=== PATIENT | female | born 1945 | race Caucasian/White ===

== ENCOUNTER 2018-02-02 08:34 | Day surgery (SDC) | payer MEDICARE, OTHER ==
[~2018-02-02] VITALS: Ht 167.6 cm; Wt 102.2 kg
[2018-02-02] VITALS (14 sets, daily range): BP systolic 104–157; BP diastolic 44–92
[2018-02-02] MEDS ORDERED: normal saline 1000ml 1,000 ML IV PRN (09:10)
[2018-02-02] MEDS ORDERED: LEVO100T PO (09:28)
[2018-02-02] MEDS ORDERED: MULT-38 PO (09:28)
[2018-02-02] MEDS ORDERED: ASPI-1265 PO (09:28)
[2018-02-02] MEDS ORDERED: LOSA100T15 PO (09:28)
[2018-02-02 09:36] LABS: BASOPHILS # (AUTO) 0.1 X10'3 (0-0.2); BASOPHILS % (AUTO) 0.8 % (0-1); EOSINOPHILS # (AUTO) 0.3 X10'3 (0-0.9); EOSINOPHILS % (AUTO) 3.4 % (0-6); LYMPHOCYTES # (AUTO) 1.1 X10'3 (1.1-4.8); LYMPHOCYTES % (AUTO) 13.2 % (21-51); MEAN CORPUSCULAR HEMOGLOBIN 29.7 PG (27.0-31.0); MEAN CORPUSCULAR HGB CONC 33.2 % (33.0-36.5); MEAN CORPUSCULAR VOLUME 89.5 FL (78-98); MEAN PLATELET VOLUME 10.4 FL (7.4-10.4); MONOCYTES # (AUTO) 0.8 X10'3 (0-0.9); MONOCYTES % (AUTO) 9.5 % (2-12); NEUTROPHILS # (AUTO) 6.3 X10'3 (1.8-7.7); NEUTROPHILS % (AUTO) 73.1 % (42-75); PRE OP HEMATOCRIT 43.9 % (35.0-45.0); PRE OP HEMOGLOBIN 14.6 g/dL (12.0-16.0); PRE OP PLATELET COUNT 239 X10'3 (140-440); RED CELL DISTRIBUTION WIDTH 14.3 % (11.5-14.5)
[2018-02-02 09:43] LABS: ALBUMIN 3.5 G/DL (3.4-5.0); ANION GAP 10 (8-16); BLOOD UREA NITROGEN 16 MG/DL (7-18); BUN/CREATININE RATIO 21.3 (6.6-38.0); CALCIUM 9.3 MG/DL (8.5-10.1); CHLORIDE 105 MMOL/L (99-107); CREATININE 0.75 MG/DL (0.40-0.90); GLUCOSE 115 MG/DL (70-104); POTASSIUM 3.8 MMOL/L (3.5-5.1); SODIUM 142 MMOL/L (135-145); TOTAL CARBON DIOXIDE 27.4 MMOL/L (24-32); eGFR 76 ML/MIN
[2018-02-02 10:05] LABS: LARGE PLATELETS FEW; PLATELET ESTIMATE NORMAL
[2018-02-02 10:20] LABS: PROTHROMBIN TIME 9.9 SECONDS (9.0-12.0)
[2018-02-02] MEDS ORDERED: fentaNYL/PF 50MCG/1 ML 2ML syringe ONE (10:56)
[2018-02-02] MEDS ORDERED: LIDOcaine 1%/PF 5ML 10 MG/ML VIAL SQ ONE (11:00)
[2018-02-02] MEDS ORDERED: fentaNYL/PF 50MCG/1 ML 2ML syringe IV PRN (11:00)
== END 2018-02-02 15:00 | disposition home or self-care (01) ==
LOC: SSTAY O 08:34
PROVIDERS: ATTEND Radiology Diagnostic Radiology
DX: C34.12 Malignant neoplasm of upper lobe, left bronchus or lung (principal); J44.9 Chronic obstructive pulmonary disease, unspecified; G47.33 Obstructive sleep apnea (adult) (pediatric); I10 Essential (primary) hypertension; E03.9 Hypothyroidism, unspecified; F32.9 Major depressive disorder, single episode, unspecified; Z92.21 Personal history of antineoplastic chemotherapy; Z92.3 Personal history of irradiation; Z88.1 Allergy status to other antibiotic agents; Z88.0 Allergy status to penicillin; Z88.5 Allergy status to narcotic agent; Z87.891 Personal history of nicotine dependence; Z85.858 Personal history of malignant neoplasm of other endocrine glands; Z90.711 Acquired absence of uterus with remaining cervical stump; Z79.82 Long term (current) use of aspirin; Z98.890 Other specified postprocedural states; Z79.899 Other long term (current) drug therapy; Z88.8 Allergy status to other drugs, medicaments and biological substances
CPT/HCPCS: 32405; 36415; 71045; 77012; 80048; 85025; 85610; C2613; J3010; J7030; C1729

== ENCOUNTER 2018-03-10 07:30 | Inpatient (IN) | payer MEDICARE, OTHER ==
[2018-03-08 13:16] LABS: ABG HCO3 26.2 mmol/L (22.0-26.0); ABG OXYGEN SATURATION 95.7 % (95-98); ABG PCO2 (T) 39.9 mmHg (32.0-45.0); ABG PH (T) 7.436 (7.350-7.450); ABG PO2 (T) 76.3 mmHg (83-108); ALLEN'S TEST Positive; FCOHb 0.3 % (0.5-1.5); FMetHb 0.1 % (0.3-1.12); FO2Hb 95.3 % (94-100); TOTAL HEMOGLOBIN 14.4 G/dl (12.0-16.0)
[2018-03-08 14:12] LABS: BASOPHILS % (AUTO) 0.5 % (0-1); EOSINOPHILS # (AUTO) 0.3 X10'3 (0-0.9); EOSINOPHILS % (AUTO) 2.9 % (0-6); LYMPHOCYTES # (AUTO) 1.3 X10'3 (1.1-4.8); LYMPHOCYTES % (AUTO) 13.6 % (21-51); MEAN CORPUSCULAR HEMOGLOBIN 29.3 PG (27.0-31.0); MEAN CORPUSCULAR HGB CONC 32.4 % (33.0-36.5); MEAN CORPUSCULAR VOLUME 90.3 FL (78-98); MEAN PLATELET VOLUME 10.2 FL (7.4-10.4); MONOCYTES # (AUTO) 0.9 X10'3 (0-0.9); MONOCYTES % (AUTO) 9.1 % (2-12); NEUTROPHILS # (AUTO) 7.1 X10'3 (1.8-7.7); NEUTROPHILS % (AUTO) 73.9 % (42-75); PRE OP HEMATOCRIT 41.9 % (35.0-45.0); PRE OP HEMOGLOBIN 13.6 g/dL (12.0-16.0); PRE OP PLATELET COUNT 247 X10'3 (140-440); RED BLOOD COUNT 4.64 X10'6 (4.20-5.60); RED CELL DISTRIBUTION WIDTH 14.6 % (11.5-14.5)
[2018-03-08 14:13] LABS: CLARITY,URINE SLIGHTLY CLOUDY (Clear); COLOR,URINE YELLOW (Yellow); GLUCOSE, URINE NEGATIVE (Neg); KETONES,URINE NEGATIVE (Neg); LEUKOCYTE ESTERASE ,URINE NEGATIVE (Neg); NITRITES, URINE NEGATIVE (Neg); OCCULT BLOOD,URINE TRACE-INTACT (Neg); PROTEIN,URINE NEGATIVE (Neg); UA COLLECTION TYPE CLN CATCH MIDSTREAM; UROBILINOGEN,URINE 0.2 E.U/dL (0.2-1.0)
[2018-03-08 14:20] LABS: MUCUS STRANDS MANY /LPF (Neg); SQUAMOUS EPITHELIAL CELL,UR MANY /LPF (FEW)
[2018-03-08 14:20] LABS: HEMOGLOBIN A1C 6.1 % (4.5-6.2)
[2018-03-08 14:21] LABS: BACTERIA,URINE FEW /HPF (Neg); RBC,URINE 0-2 /HPF (0-2); WBC,URINE 0-4 /HPF (0-4)
[2018-03-08 14:36] LABS: ALBUMIN 3.3 G/DL (3.4-5.0); ALBUMIN/GLOBULIN RATIO 0.8 (1.1-1.5); ALKALINE PHOSPHATASE 118 IU/L (46-116); BLOOD UREA NITROGEN 15 MG/DL (7-18); BUN/CREATININE RATIO 18.3 (6.6-38.0); CALCIUM 9.1 MG/DL (8.5-10.1); CHLORIDE 105 MMOL/L (99-107); CREATININE 0.82 MG/DL (0.40-0.90); PRE OP ALT 28 U/L (30-65); PRE OP ANION GAP 9 (8-16); PRE OP AST 15 U/L (10-37); PRE OP BILIRUB, TOTAL 0.3 MG/DL (0.0-1.0); PRE OP GLUCOSE 92 MG/DL (70-104); PRE OP POTASSIUM 4.1 MMOL/L (3.4-5.1); PRE OP SODIUM 141 MMOL/L (135-145); TOTAL CARBON DIOXIDE 27.5 MMOL/L (24-32); TOTAL PROTEIN 7.3 G/DL (6.4-8.2); eGFR 69 ML/MIN
[~2018-03-10] VITALS: Ht 167.6 cm; Wt 103.0 kg
[2018-03-10] VITALS (17 sets, daily range): BP systolic 101–138; BP diastolic 48–91
[~2018-03-10 07:30] MED LIST: ASPI-1265 PO; LEVO100T PO; LOSA100T15 PO; MULT-38 PO; cefazolin/dext.iso 2gm/50ml 50 ML IV ONE; famotidine 20mg tablet PO ONE
[2018-03-10] MEDS ORDERED: BUPIVAcaine/PF 2.5mg/ml (0.25%) 10ml vial ONE ×2 (08:41→15:00)
[2018-03-10] MEDS: ringers solution, lacted 1,000 ML IV SCH ×2 (10:14→19:49)
[2018-03-10] MEDS ORDERED: propofol inj 20 ML IV ONE (13:39)
[2018-03-10] MEDS ORDERED: fentaNYL /PF 50mcg/ml 5ml ampule ONE (13:39)
[2018-03-10] MEDS ORDERED: rocuronium 10mg/ml inj IV ONE ×2 (13:39→13:42)
[2018-03-10] MEDS ORDERED: MIDAZolam 5mg/5ml vial ONE (13:39)
[2018-03-10] MEDS ORDERED: ePHEDrine 50MG/ML INJ. ONE (13:42)
[2018-03-10] MEDS ORDERED: sevoflurane 250ml liquid IH ONE (13:42)
[2018-03-10] MEDS ORDERED: ringers solution, lacted 1,000 ML IV SCH (15:42)
[2018-03-10] MEDS ORDERED: morphine 4 MG/ML inj SYRINge IV PRN ×4 (15:45→16:45)
[2018-03-10] MEDS ORDERED: meperidine/PF 25mg/ml syringe IV PRN ×3 (15:45)
[2018-03-10] MEDS ORDERED: ondansetron/PF 4mg/2ml inj IV PRN (15:45)
[2018-03-10] MEDS ORDERED: proCHLORperazine 10 MG/2 ml inj IV PRN (15:45)
[2018-03-10] MEDS ORDERED: metoclopramide 5 mg/ml inj IV PRN (16:45)
[2018-03-10] MEDS ORDERED: naloxone 0.4 mg/ml inj IV PRN (16:45)
[2018-03-10] MEDS ORDERED: HYDROcodone/acetaminophen 10/325mg tab PO PRN ×2 (16:45)
[2018-03-10] MEDS ORDERED: CADD PCA waste documentation MC PRN (16:45)
[2018-03-10] MEDS ORDERED: glycopyrrolate 0.2mg/ml inj ONE (17:14)
[2018-03-10] MEDS ORDERED: neostigmine methylsulfate 1 MG/ML 10ml vial ONE (17:14)
[2018-03-10 17:35] LABS: ABG BASE EXCESS -2.2 mmol/L (-2.0-3.0); ABG OXYGEN SATURATION 94.2 % (95-98); ABG PCO2 (T) 52.8 mmHg (32.0-45.0); ABG PH (T) 7.293 (7.350-7.450); ABG PO2 (T) 80.4 mmHg (83-108); FCOHb 0.3 % (0.5-1.5); FLOW 11 L/min; FMetHb 0.1 % (0.3-1.12); FO2Hb 93.8 % (94-100); TOTAL HEMOGLOBIN 13.4 G/dl (12.0-16.0)
[2018-03-10] MEDS: ondansetron/PF 4mg/2ml inj IV PRN (22:31)
[2018-03-10] MEDS: ceFAZolin inj. 1,000 MG in dextrose 5%-water 50ml 50 ML IV SCH (23:43)
[2018-03-11] VITALS (24 sets, daily range): BP systolic 92–137; BP diastolic 41–73
[2018-03-11 02:49] LABS: BASOPHILS % (AUTO) 0 % (0-1); EOSINOPHILS % (AUTO) 0 % (0-6); HEMATOCRIT 38.8 % (35.0-45.0); HEMOGLOBIN 12.8 g/dl (12.0-16.0); LYMPHOCYTES # (AUTO) 0.7 X10'3 (1.1-4.8); MEAN CORPUSCULAR HEMOGLOBIN 29.5 PG (27.0-31.0); MEAN CORPUSCULAR HGB CONC 32.9 % (33.0-36.5); MEAN CORPUSCULAR VOLUME 89.7 FL (78-98); MEAN PLATELET VOLUME 10.1 FL (7.4-10.4); MONOCYTES # (AUTO) 0.7 X10'3 (0-0.9); MONOCYTES % (AUTO) 5.1 % (2-12); NEUTROPHILS # (AUTO) 13.1 X10'3 (1.8-7.7); NEUTROPHILS % (AUTO) 89.9 % (42-75); PLATELET COUNT 228 X10'3 (140-440); RED BLOOD COUNT 4.32 X10'6 (4.20-5.60); RED CELL DISTRIBUTION WIDTH 14.2 % (11.5-14.5); WHITE BLOOD COUNT 14.6 X10'3 (4.5-11.0)
[2018-03-11 02:57] LABS: ALANINE AMINOTRANSFERASE 25 U/L (12-78); ALBUMIN 3.2 G/DL (3.4-5.0); ALBUMIN/GLOBULIN RATIO 0.9 (1.1-1.5); ALKALINE PHOSPHATASE 99 IU/L (46-116); ANION GAP 8 (8-16); ASPARTATE AMINO TRANSFERASE 16 U/L (10-37); BILIRUBIN,TOTAL 0.5 MG/DL (0.1-1.0); BLOOD UREA NITROGEN 12 MG/DL (7-18); CALCIUM 8.5 MG/DL (8.5-10.1); CHLORIDE 105 MMOL/L (99-107); CREATININE 0.75 MG/DL (0.40-0.90); GLUCOSE 137 MG/DL (70-104); MAGNESIUM 1.7 MG/DL (1.5-2.4); PHOSPHORUS 3.9 MG/DL (2.3-4.5); POTASSIUM 4.2 MMOL/L (3.5-5.1); SODIUM 139 MMOL/L (135-145); TOTAL CARBON DIOXIDE 25.6 MMOL/L (24-32); TOTAL PROTEIN 6.7 G/DL (6.4-8.2); eGFR 76 ML/MIN
[2018-03-11] MEDS ORDERED: oxyCODONE/APAP 5-325mg tablet PO PRN (07:10)
[2018-03-11] MEDS: ceFAZolin inj. 1,000 MG in dextrose 5%-water 50ml 50 ML IV SCH (07:28)
[2018-03-11] MEDS: ketorolac trometh. 30mg/ml inj. IV SCH ×3 (07:28→20:16)
[2018-03-11] MEDS: aspirin 81mg tab.chew PO SCH (08:08)
[2018-03-11] MEDS: ondansetron/PF 4mg/2ml inj IV PRN (08:41)
[2018-03-12] VITALS (23 sets, daily range): BP systolic 86–141; BP diastolic 42–87
[2018-03-12] MEDS: ketorolac trometh. 30mg/ml inj. IV SCH ×4 (02:12→20:19)
[2018-03-12 05:27] LABS: BASOPHILS % (AUTO) 0 % (0-1); EOSINOPHILS # (AUTO) 0.3 X10'3 (0-0.9); EOSINOPHILS % (AUTO) 2.6 % (0-6); HEMATOCRIT 38.8 % (35.0-45.0); HEMOGLOBIN 12.4 g/dl (12.0-16.0); LYMPHOCYTES # (AUTO) 0.7 X10'3 (1.1-4.8); LYMPHOCYTES % (AUTO) 6.8 % (21-51); MEAN CORPUSCULAR HEMOGLOBIN 29.1 PG (27.0-31.0); MEAN CORPUSCULAR HGB CONC 32.1 % (33.0-36.5); MEAN CORPUSCULAR VOLUME 90.8 FL (78-98); MEAN PLATELET VOLUME 10.7 FL (7.4-10.4); MONOCYTES # (AUTO) 0.8 X10'3 (0-0.9); MONOCYTES % (AUTO) 7.4 % (2-12); NEUTROPHILS # (AUTO) 8.7 X10'3 (1.8-7.7); NEUTROPHILS % (AUTO) 83.2 % (42-75); PLATELET COUNT 192 X10'3 (140-440); RED BLOOD COUNT 4.28 X10'6 (4.20-5.60); RED CELL DISTRIBUTION WIDTH 14.5 % (11.5-14.5); WHITE BLOOD COUNT 10.5 X10'3 (4.5-11.0)
[2018-03-12 05:44] LABS: ALANINE AMINOTRANSFERASE 20 U/L (12-78); ALBUMIN 2.8 G/DL (3.4-5.0); ALBUMIN/GLOBULIN RATIO 0.8 (1.1-1.5); ALKALINE PHOSPHATASE 102 IU/L (46-116); ANION GAP 6 (8-16); ASPARTATE AMINO TRANSFERASE 15 U/L (10-37); BILIRUBIN,TOTAL 0.6 MG/DL (0.1-1.0); BLOOD UREA NITROGEN 13 MG/DL (7-18); BUN/CREATININE RATIO 16.3 (6.6-38.0); CALCIUM 8.4 MG/DL (8.5-10.1); CHLORIDE 105 MMOL/L (99-107); GLUCOSE 108 MG/DL (70-104); MAGNESIUM 1.9 MG/DL (1.5-2.4); PHOSPHORUS 2.4 MG/DL (2.3-4.5); POTASSIUM 4.1 MMOL/L (3.5-5.1); SODIUM 140 MMOL/L (135-145); TOTAL CARBON DIOXIDE 28.6 MMOL/L (24-32); TOTAL PROTEIN 6.5 G/DL (6.4-8.2); eGFR 71 ML/MIN
[2018-03-12] MEDS: levoTHYROXINE 100mcg tablet PO SCH (07:24)
[2018-03-12] MEDS: aspirin 81mg tab.chew PO SCH (09:30)
[2018-03-13] VITALS (24 sets, daily range): BP systolic 86–161; BP diastolic 52–82
[2018-03-13] MEDS: ketorolac trometh. 30mg/ml inj. IV SCH ×3 (02:30→08:51)
[2018-03-13 06:05] LABS: BASOPHILS % (AUTO) 0 % (0-1); EOSINOPHILS # (AUTO) 0.3 X10'3 (0-0.9); EOSINOPHILS % (AUTO) 2.7 % (0-6); HEMATOCRIT 38.8 % (35.0-45.0); HEMOGLOBIN 12.7 g/dl (12.0-16.0); LYMPHOCYTES % (AUTO) 9.6 % (21-51); MEAN CORPUSCULAR HEMOGLOBIN 29.6 PG (27.0-31.0); MEAN CORPUSCULAR HGB CONC 32.8 % (33.0-36.5); MEAN CORPUSCULAR VOLUME 90.4 FL (78-98); MEAN PLATELET VOLUME 10.6 FL (7.4-10.4); MONOCYTES # (AUTO) 0.8 X10'3 (0-0.9); MONOCYTES % (AUTO) 7.8 % (2-12); NEUTROPHILS # (AUTO) 8.3 X10'3 (1.8-7.7); NEUTROPHILS % (AUTO) 79.9 % (42-75); PLATELET COUNT 206 X10'3 (140-440); RED BLOOD COUNT 4.29 X10'6 (4.20-5.60); RED CELL DISTRIBUTION WIDTH 14.1 % (11.5-14.5); WHITE BLOOD COUNT 10.4 X10'3 (4.5-11.0)
[2018-03-13 06:31] LABS: ALANINE AMINOTRANSFERASE 34 U/L (12-78); ALBUMIN 2.6 G/DL (3.4-5.0); ALBUMIN/GLOBULIN RATIO 0.7 (1.1-1.5); ALKALINE PHOSPHATASE 143 IU/L (46-116); ANION GAP 8 (8-16); ASPARTATE AMINO TRANSFERASE 26 U/L (10-37); BILIRUBIN,TOTAL 0.5 MG/DL (0.1-1.0); BLOOD UREA NITROGEN 13 MG/DL (7-18); BUN/CREATININE RATIO 19.7 (6.6-38.0); CALCIUM 8.4 MG/DL (8.5-10.1); CHLORIDE 105 MMOL/L (99-107); CREATININE 0.66 MG/DL (0.40-0.90); GLUCOSE 111 MG/DL (70-104); MAGNESIUM 1.8 MG/DL (1.5-2.4); PHOSPHORUS 2.8 MG/DL (2.3-4.5); POTASSIUM 4.1 MMOL/L (3.5-5.1); SODIUM 140 MMOL/L (135-145); TOTAL CARBON DIOXIDE 27.5 MMOL/L (24-32); TOTAL PROTEIN 6.4 G/DL (6.4-8.2); eGFR 88 ML/MIN
[2018-03-13] MEDS: levoTHYROXINE 100mcg tablet PO SCH (07:50)
[2018-03-13] MEDS: aspirin 81mg tab.chew PO SCH (07:50)
[2018-03-13] MEDS: ondansetron/PF 4mg/2ml inj IV PRN (21:29)
[2018-03-13] MEDS: losartan 25mg tablet PO SCH (21:29)
[2018-03-14] VITALS (23 sets, daily range): BP systolic 103–163; BP diastolic 57–91
[2018-03-14 06:39] LABS: BASOPHILS % (AUTO) 0 % (0-1); EOSINOPHILS # (AUTO) 0.3 X10'3 (0-0.9); EOSINOPHILS % (AUTO) 2.8 % (0-6); HEMATOCRIT 39.6 % (35.0-45.0); HEMOGLOBIN 12.9 g/dl (12.0-16.0); LYMPHOCYTES # (AUTO) 1.1 X10'3 (1.1-4.8); MEAN CORPUSCULAR HEMOGLOBIN 29.3 PG (27.0-31.0); MEAN CORPUSCULAR HGB CONC 32.5 % (33.0-36.5); MEAN CORPUSCULAR VOLUME 90.1 FL (78-98); MEAN PLATELET VOLUME 10.6 FL (7.4-10.4); MONOCYTES # (AUTO) 0.9 X10'3 (0-0.9); MONOCYTES % (AUTO) 7.5 % (2-12); NEUTROPHILS # (AUTO) 9.4 X10'3 (1.8-7.7); NEUTROPHILS % (AUTO) 80.7 % (42-75); PLATELET COUNT 231 X10'3 (140-440); RED CELL DISTRIBUTION WIDTH 14.4 % (11.5-14.5); WHITE BLOOD COUNT 11.7 X10'3 (4.5-11.0)
[2018-03-14 07:05] LABS: ALANINE AMINOTRANSFERASE 31 U/L (12-78); ALBUMIN 2.5 G/DL (3.4-5.0); ALBUMIN/GLOBULIN RATIO 0.7 (1.1-1.5); ALKALINE PHOSPHATASE 127 IU/L (46-116); ANION GAP 7 (8-16); ASPARTATE AMINO TRANSFERASE 20 U/L (10-37); BILIRUBIN,TOTAL 0.5 MG/DL (0.1-1.0); BLOOD UREA NITROGEN 13 MG/DL (7-18); BUN/CREATININE RATIO 24.1 (6.6-38.0); CALCIUM 8.3 MG/DL (8.5-10.1); CHLORIDE 105 MMOL/L (99-107); CREATININE 0.54 MG/DL (0.40-0.90); GLUCOSE 113 MG/DL (70-104); MAGNESIUM 1.7 MG/DL (1.5-2.4); PHOSPHORUS 2.5 MG/DL (2.3-4.5); POTASSIUM 4.1 MMOL/L (3.5-5.1); SODIUM 140 MMOL/L (135-145); TOTAL CARBON DIOXIDE 27.8 MMOL/L (24-32); TOTAL PROTEIN 6.3 G/DL (6.4-8.2); eGFR > 90 ML/MIN
[2018-03-14] MEDS: levoTHYROXINE 100mcg tablet PO SCH (07:19)
[2018-03-14] MEDS: ketorolac trometh. 30mg/ml inj. IV SCH ×3 (07:56→21:09)
[2018-03-14] MEDS: aspirin 81mg tab.chew PO SCH (07:56)
[2018-03-14] MEDS ORDERED: acetaminophen 325mg tablet PO PRN (10:10)
[2018-03-14] MEDS: ibuprofen tablet 400 MG TABLET PO PRN (11:12)
[2018-03-14] MEDS: losartan 25mg tablet PO SCH (21:08)
[2018-03-15] VITALS (23 sets, daily range): BP systolic 11–158; BP diastolic 48–76
[2018-03-15] MEDS: ketorolac trometh. 30mg/ml inj. IV SCH (02:00)
[2018-03-15] MEDS: levoTHYROXINE 100mcg tablet PO SCH (07:02)
[2018-03-15] MEDS ORDERED: ketorolac tromethamine 15mg/ml inj. IV PRN (08:20)
[2018-03-15] MEDS ORDERED: magnesium citrate 296ml oral solution PO ONE (08:20)
[2018-03-15] MEDS ORDERED: IBUP-1984 PO (08:27)
[2018-03-15] MEDS: aspirin 81mg tab.chew PO SCH (08:27)
[2018-03-15] MEDS ORDERED: PER5325T PO (08:27)
[2018-03-15] MEDS ORDERED: LOSA25TA12 PO (08:27)
[2018-03-15] MEDS ORDERED: METO25TA6 PO (08:27)
[2018-03-15] MEDS: metoprolol tartrate 12.5mg (1/2 tablet) PO SCH ×2 (08:34→19:40)
[2018-03-15] MEDS: ibuprofen tablet 400 MG TABLET PO PRN (11:07)
[2018-03-15] MEDS: ondansetron/PF 4mg/2ml inj IV PRN (19:40)
[2018-03-15] MEDS: losartan 25mg tablet PO SCH (20:37)
[2018-03-16] VITALS (15 sets, daily range): BP systolic 102–149; BP diastolic 50–79
[2018-03-16 05:16] LABS: BASOPHILS % (AUTO) 0.1 % (0-1); EOSINOPHILS # (AUTO) 0.4 X10'3 (0-0.9); EOSINOPHILS % (AUTO) 3.7 % (0-6); HEMATOCRIT 38.1 % (35.0-45.0); HEMOGLOBIN 12.6 g/dl (12.0-16.0); LYMPHOCYTES % (AUTO) 9.7 % (21-51); MEAN CORPUSCULAR HEMOGLOBIN 29.6 PG (27.0-31.0); MEAN CORPUSCULAR VOLUME 89.7 FL (78-98); MEAN PLATELET VOLUME 10.1 FL (7.4-10.4); MONOCYTES # (AUTO) 0.9 X10'3 (0-0.9); MONOCYTES % (AUTO) 9.1 % (2-12); NEUTROPHILS # (AUTO) 7.6 X10'3 (1.8-7.7); NEUTROPHILS % (AUTO) 77.4 % (42-75); PLATELET COUNT 261 X10'3 (140-440); RED BLOOD COUNT 4.25 X10'6 (4.20-5.60); RED CELL DISTRIBUTION WIDTH 14.5 % (11.5-14.5); WHITE BLOOD COUNT 9.8 X10'3 (4.5-11.0)
[2018-03-16 05:25] LABS: ALBUMIN 2.4 G/DL (3.4-5.0); ANION GAP 5 (8-16); BLOOD UREA NITROGEN 17 MG/DL (7-18); BUN/CREATININE RATIO 23.9 (6.6-38.0); CALCIUM 8.5 MG/DL (8.5-10.1); CHLORIDE 106 MMOL/L (99-107); CREATININE 0.71 MG/DL (0.40-0.90); GLUCOSE 109 MG/DL (70-104); MAGNESIUM 1.8 MG/DL (1.5-2.4); POTASSIUM 4.2 MMOL/L (3.5-5.1); SODIUM 140 MMOL/L (135-145); TOTAL CARBON DIOXIDE 29.2 MMOL/L (24-32); eGFR 81 ML/MIN
[2018-03-16] MEDS: levoTHYROXINE 100mcg tablet PO SCH (07:56)
[2018-03-16] MEDS: aspirin 81mg tab.chew PO SCH (07:56)
[2018-03-16] MEDS: metoprolol tartrate 12.5mg (1/2 tablet) PO SCH (07:57)
== END 2018-03-16 15:05 | disposition home health service (06) | DRG 164 ==
LOC: EDSTATUS 07:30 → PAS IN 09:44 → CICU 2S 17:31
PROVIDERS: ADMIT Thoracic Surgery (Cardiothoracic Vascular Surgery); ATTEND Thoracic Surgery (Cardiothoracic Vascular Surgery)
PROC: 07B74ZZ Excision of Thorax Lymphatic, Percutaneous Endoscopic Approach (ICD-10-PCS; 2018-03-10)
PROC: 05HM33Z Insertion of Infusion Device into Right Internal Jugular Vein, Percutaneous Approach (ICD-10-PCS; 2018-03-10)
PROC: 0BTG4ZZ Resection of Left Upper Lung Lobe, Percutaneous Endoscopic Approach (ICD-10-PCS; principal; 2018-03-10 13:42)
DX: C34.12 Malignant neoplasm of upper lobe, left bronchus or lung (principal); I47.1 Supraventricular tachycardia; T79.7XXA Traumatic subcutaneous emphysema, initial encounter; G47.33 Obstructive sleep apnea (adult) (pediatric); E03.9 Hypothyroidism, unspecified; F41.9 Anxiety disorder, unspecified; I10 Essential (primary) hypertension; J44.9 Chronic obstructive pulmonary disease, unspecified; Z90.711 Acquired absence of uterus with remaining cervical stump; Z88.1 Allergy status to other antibiotic agents; Z88.5 Allergy status to narcotic agent; Z88.0 Allergy status to penicillin; Z88.8 Allergy status to other drugs, medicaments and biological substances; Z79.899 Other long term (current) drug therapy; Z79.82 Long term (current) use of aspirin; Z87.891 Personal history of nicotine dependence; Z80.1 Family history of malignant neoplasm of trachea, bronchus and lung; Z80.2 Family history of malignant neoplasm of other respiratory and intrathoracic organs; Z80.8 Family history of malignant neoplasm of other organs or systems; Y92.238 Other place in hospital as the place of occurrence of the external cause
CPT/HCPCS: 36415; 36600; 71045; 71046; 80048; 80053; 81001; 82803; 82948; 83036; 83735; 84100; 84443; 85018; 85025; 85610; 85730; 86885; 86900; 86901; 86920; 87070; 88305; 88309; 88311; 93005; 97110; 97116; 97161; 97530; A6449; A7000; A7048; C1758; G0378; J0690; J1885; J2250; J2270; J2405; J2704; J2710; J2765; J3010; J3490; J7030; J7060; J7120

== ENCOUNTER 2018-08-31 10:47 | Emergency (ER) | payer MEDICARE, OTHER ==
[~2018-08-31] VITALS: Ht 167.6 cm; Wt 100.0 kg
[~2018-08-31 10:47] MED LIST changes: +IBUP-1984 PO; -LOSA100T15 PO; +LOSA25TA41 PO; +METO25TA6 PO; +PER5325T PO; -cefazolin/dext.iso 2gm/50ml 50 ML IV ONE; -famotidine 20mg tablet PO ONE
[2018-08-31 10:59] VITALS: BP 124/71
[2018-08-31] MEDS ORDERED: ketorolac tromethamine 15mg/ml inj. IM ONE (11:55)
[2018-08-31] MEDS ORDERED: TRAM50TA2 PO (12:08)
== END 2018-08-31 12:16 | disposition home or self-care (01) ==
LOC: ER 10:48
DX: M25.552 Pain in left hip (principal); I10 Essential (primary) hypertension; J44.9 Chronic obstructive pulmonary disease, unspecified; F17.200 Nicotine dependence, unspecified, uncomplicated; Z88.6 Allergy status to analgesic agent; Z88.1 Allergy status to other antibiotic agents; Z88.0 Allergy status to penicillin; Z88.8 Allergy status to other drugs, medicaments and biological substances; Z79.82 Long term (current) use of aspirin
CPT/HCPCS: 73502; 96372; 99283; J1885

== ENCOUNTER 2018-12-27 11:28 | Inpatient (IN) | payer MEDICARE, OTHER ==
[~2018-12-27] VITALS: Ht 167.6 cm; Wt 85.9 kg
[~2018-12-27 11:28] MED LIST changes: +AMLO5TAB16 PO; -ASPI-1265 PO; -IBUP-1984 PO; +IBUP-1986 PO; -LOSA25TA41 PO; -METO25TA6 PO; -MULT-38 PO; -PER5325T PO
[2018-12-27] MEDS ORDERED: ondansetron/PF 4mg/2ml inj IV ONE (11:40)
[2018-12-27 11:59] LABS: BASOPHILS # (AUTO) 0.1 X10'3 (0-0.2); BASOPHILS % (AUTO) 0.4 % (0-1); EOSINOPHILS # (AUTO) 0.8 X10'3 (0-0.9); EOSINOPHILS % (AUTO) 6.4 % (0-6); HEMATOCRIT 37.5 % (35.0-45.0); HEMOGLOBIN 12.1 g/dl (12.0-16.0); LYMPHOCYTES # (AUTO) 0.4 X10'3 (1.1-4.8); LYMPHOCYTES % (AUTO) 3.2 % (21-51); MEAN CORPUSCULAR HEMOGLOBIN 27.6 PG (27.0-31.0); MEAN CORPUSCULAR HGB CONC 32.3 g/dL (33.0-36.5); MEAN CORPUSCULAR VOLUME 85.4 FL (78-98); MEAN PLATELET VOLUME 10.2 FL (7.4-10.4); MONOCYTES # (AUTO) 0.9 X10'3 (0-0.9); MONOCYTES % (AUTO) 6.8 % (2-12); NEUTROPHILS # (AUTO) 10.8 X10'3 (1.8-7.7); NEUTROPHILS % (AUTO) 83.2 % (42-75); PLATELET COUNT 249 X10'3 (140-440); RED BLOOD COUNT 4.39 X10'6 (4.20-5.60); RED CELL DISTRIBUTION WIDTH 15.7 % (11.5-14.5); WHITE BLOOD COUNT 12.9 X10'3 (4.5-11.0)
[2018-12-27] MEDS ORDERED: normal saline 1000ML IV soln IV ONE (12:05)
[2018-12-27 12:17] LABS: ALANINE AMINOTRANSFERASE 55 U/L (12-78); ALBUMIN 2.9 G/DL (3.4-5.0); ALBUMIN/GLOBULIN RATIO 0.7 (1.1-1.5); ALKALINE PHOSPHATASE 376 IU/L (46-116); ANION GAP 11 (8-16); ASPARTATE AMINO TRANSFERASE 44 U/L (10-37); BILIRUBIN,TOTAL 0.4 MG/DL (0.1-1.0); BLOOD UREA NITROGEN 19 MG/DL (7-18); BUN/CREATININE RATIO 27.1 (6.6-38.0); CALCIUM 10.1 MG/DL (8.5-10.1); CHLORIDE 101 MMOL/L (99-107); GLUCOSE 92 MG/DL (70-104); POTASSIUM 3.9 MMOL/L (3.5-5.1); SODIUM 139 MMOL/L (135-145); TOTAL CARBON DIOXIDE 27.4 MMOL/L (24-32); eGFR 82 ML/MIN
--- NOTE | 2018-12-27 12:22 | NUR ---
Pt transported to CT scan via gurney with the side rails raised. First set of blood cultures collected and second is pending.
[2018-12-27] MEDS ORDERED: CELE-85 PO (12:55)
[2018-12-27] MEDS ORDERED: WARF-55 PO (12:55)
[2018-12-27] MEDS ORDERED: POTA8TAB8 PO (12:55)
[2018-12-27] MEDS ORDERED: PER5325T PO (12:55)
[2018-12-27] MEDS ORDERED: FURO40TA4 PO (12:55)
[2018-12-27] MEDS ORDERED: ONDA8TAB12 PO (12:58)
[2018-12-27] MEDS ORDERED: LIDO700A47 TOP (12:58)
[2018-12-27] MEDS ORDERED: OMEP20TA23 PO (12:58)
[2018-12-27 13:31] LABS: CLARITY,URINE CLEAR (Clear); COLOR,URINE YELLOW (Yellow); GLUCOSE, URINE NEGATIVE (Neg); KETONES,URINE 40 mg/dl (Neg); LEUKOCYTE ESTERASE ,URINE NEGATIVE (Neg); NITRITES, URINE NEGATIVE (Neg); OCCULT BLOOD,URINE NEGATIVE (Neg); PROTEIN,URINE TRACE mg/dl (Neg)
[2018-12-27 13:43] LABS: UA COLLECTION TYPE STRAIGHT CATH
[2018-12-27 13:46] LABS: BACTERIA,URINE NONE SEEN /HPF (Neg); MUCUS STRANDS MODERATE /LPF (Neg); RBC,URINE NONE SEEN /HPF (0-2); SQUAMOUS EPITHELIAL CELL,UR MODERATE /LPF (FEW)
[2018-12-27] MEDS ORDERED: mag hydrox/Alum hydrox/simeth 30ml oral suspension PO PRN (14:15)
[2018-12-27] MEDS ORDERED: acetaminophen 325mg tablet PO PRN (14:15)
[2018-12-27] MEDS ORDERED: CefTRIAXone 2gm/D5W 50ml 50 ML IV ONE (14:15)
[2018-12-27] MEDS ORDERED: morphine 2 MG/ML inj. syringe IV PRN ×2 (14:15)
[2018-12-27] MEDS ORDERED: ondansetron/PF 4mg/2ml inj IV PRN (14:15)
[2018-12-27] MEDS: dextrose 5%-1/2 normal saline 1,000 ML IV SCH (14:32)
[2018-12-27] MEDS ORDERED: RIVA15TA PO (16:05)
[2018-12-27 17:45] VITALS: BP 116/58
--- NOTE | 2018-12-27 17:45 | NUR ---
Pt arrived on unit via gurney, transfered to bed. Tele monitor applied. Pt alert and oriented. Will continue to monitor.
[2018-12-27 18:00] VITALS: BP 121/65
[2018-12-27] MEDS ORDERED: metoclopramide 5 mg/ml inj IV PRN (18:15)
--- NOTE | 2018-12-27 18:24 | NUR ---
Problems reprioritized. Patient report given, questions answered & plan of care reviewed with Marleen ROCHA. Patient stable at transfer of care.
--- NOTE | 2018-12-27 18:25 | NUR ---
[place] documentation: I have reviewed and agree with interventions, assessments performed and documented by Tamiko Salazar RN. [place] Medication Administration: For this medication-pass time frame, medication were reviewed, dispensed, administered and documented per hospital policy by Tamiko Salazar RN .
--- NOTE | 2018-12-27 18:30 | NUR ---
Patient in room [facility]B. I have received report from AJ Morrison and had the opportunity to ask questions and assume patient care.
[2018-12-28] VITALS: BP_SYST 113; BP_SYST 127; BP_DIAS 62; BP_DIAS 68
[2018-12-28] MEDS: dextrose 5%-1/2 normal saline 1,000 ML IV SCH ×3 (01:02→19:58)
[2018-12-28] MEDS: ondansetron 4mg rapidly disintigrating tab PO SCH ×4 (01:04→19:57)
[2018-12-28 05:00] LABS: BASOPHILS % (AUTO) 0.4 % (0-1); EOSINOPHILS # (AUTO) 1.1 X10'3 (0-0.9); EOSINOPHILS % (AUTO) 9.5 % (0-6); HEMATOCRIT 32.7 % (35.0-45.0); HEMOGLOBIN 10.7 g/dl (12.0-16.0); LYMPHOCYTES # (AUTO) 0.5 X10'3 (1.1-4.8); LYMPHOCYTES % (AUTO) 4.3 % (21-51); MEAN CORPUSCULAR HGB CONC 32.7 g/dL (33.0-36.5); MEAN CORPUSCULAR VOLUME 85.7 FL (78-98); MEAN PLATELET VOLUME 10.3 FL (7.4-10.4); MONOCYTES # (AUTO) 0.9 X10'3 (0-0.9); MONOCYTES % (AUTO) 8.4 % (2-12); NEUTROPHILS # (AUTO) 8.7 X10'3 (1.8-7.7); NEUTROPHILS % (AUTO) 77.4 % (42-75); PLATELET COUNT 202 X10'3 (140-440); RED BLOOD COUNT 3.82 X10'6 (4.20-5.60); RED CELL DISTRIBUTION WIDTH 15.6 % (11.5-14.5); WHITE BLOOD COUNT 11.3 X10'3 (4.5-11.0)
[2018-12-28 05:14] LABS: ALBUMIN 2.5 G/DL (3.4-5.0); ANION GAP 10 (8-16); BLOOD UREA NITROGEN 9 MG/DL (7-18); CALCIUM 9.2 MG/DL (8.5-10.1); CHLORIDE 106 MMOL/L (99-107); GLUCOSE 98 MG/DL (70-104); POTASSIUM 3.6 MMOL/L (3.5-5.1); SODIUM 141 MMOL/L (135-145); TOTAL CARBON DIOXIDE 25.3 MMOL/L (24-32); eGFR > 90 ML/MIN
--- NOTE | 2018-12-28 06:40 | NUR ---
Problems reprioritized. Patient report given, questions answered & plan of care reviewed with AJ Gordon.
[2018-12-28] MEDS: pantoprazole 40mg Tablet.DR PO SCH (06:55)
[2018-12-28] MEDS: oxyCODONE/APAP 5-325mg tablet PO PRN ×2 (06:55→16:16)
[2018-12-28] MEDS: CefTRIAXone/D5W-Rocephin 1gm 50 ML IV SCH (07:04)
[2018-12-28] MEDS: levoTHYROXINE 100mcg tablet PO SCH (07:10)
[2018-12-28] MEDS: amLODIPine 5mg tablet PO SCH (07:10)
[2018-12-28] MEDS: celeCOXIB 100mg capsule PO SCH (07:10)
[2018-12-28] MEDS: magnesium hydroxide 30ml (MOM) UD suspension PO PRN (07:11)
[2018-12-28 08:00] VITALS: BP 127/79
--- NOTE | 2018-12-28 09:00 | NUR ---
Dr Morales aware of INR at 8.0, no new orders.
[2018-12-28 10:00] VITALS: BP_SYST 119; BP_SYST 123; BP_SYST 93; BP_DIAS 54; BP_DIAS 68; BP_DIAS 69
[2018-12-28 11:00] VITALS: BP 123/69
--- NOTE | 2018-12-28 11:34 | NUR ---
Pt orthostatic while working with PT, look at orthostatic vitals for BP's/ HR. Dr Morales aware, says she is getting fluids so that should help and recheck her tomorrow before she goes to see if it is better.
--- NOTE | 2018-12-28 13:51 | NUR ---
Malnutrition consult: Pt seen at bedside reports low appetite which is improving. Pt currently on a regular diet documented with 100% PO intake at dinner however reports just a few bite of food and sips of milk at breakfast. Pt reports she will likely have good PO intake for lunch today. Pt reports UBW of 226 lbs with wt loss to 189 lbs which is a wt that was taken 1-2 weeks ago at the oncology center per pt. This is non-severe wt loss of 16% in 1 year. Pt with no decrease in muscle strength and no edema or wounds. No visible fat or muscle wasting. Pt currently does not meet criteria for malnutrition. Pt requests no apple juice or coffee, d/w dietary. Pt reports some constipation with LBM 12/24, with MoM PRN just given today. Pt denies nutrition therapy for constipation at this time. RD contact information provided. Will continue to follow. Addendum: 12/28/18 at [address] Amended: Links added.
--- NOTE | 2018-12-28 18:35 | NUR ---
Patient in room [facility]. I have received report from robbie ROCHA and Rosey ROCHA and had the opportunity to ask questions and assume patient care.
--- NOTE | 2018-12-28 18:44 | NUR ---
Problems reprioritized. Patient report given, questions answered & plan of care reviewed with Jennifer ROCHA.
[2018-12-28 19:00] VITALS: BP 104/55
[2018-12-28] MEDS: lactobacillus rhamnosus 10,000 MMU CELLS/CAPSULE PO SCH (19:57)
[2018-12-29] MEDS: oxyCODONE/APAP 5-325mg tablet PO PRN ×3 (00:07→23:13)
[2018-12-29 00:18] VITALS: BP 114/69
[2018-12-29 04:49] LABS: BASOPHILS # (AUTO) 0.1 X10'3 (0-0.2); BASOPHILS % (AUTO) 0.7 % (0-1); EOSINOPHILS # (AUTO) 1.1 X10'3 (0-0.9); EOSINOPHILS % (AUTO) 9.5 % (0-6); HEMATOCRIT 33.9 % (35.0-45.0); HEMOGLOBIN 10.8 g/dl (12.0-16.0); LYMPHOCYTES # (AUTO) 0.6 X10'3 (1.1-4.8); LYMPHOCYTES % (AUTO) 4.9 % (21-51); MEAN CORPUSCULAR HGB CONC 31.8 g/dL (33.0-36.5); MEAN PLATELET VOLUME 10.5 FL (7.4-10.4); MONOCYTES % (AUTO) 8.4 % (2-12); NEUTROPHILS # (AUTO) 8.6 X10'3 (1.8-7.7); NEUTROPHILS % (AUTO) 76.5 % (42-75); PLATELET COUNT 196 X10'3 (140-440); RED BLOOD COUNT 3.99 X10'6 (4.20-5.60); WHITE BLOOD COUNT 11.3 X10'3 (4.5-11.0)
[2018-12-29 05:01] LABS: ALBUMIN 2.5 G/DL (3.4-5.0); ANION GAP 9 (8-16); BLOOD UREA NITROGEN 7 MG/DL (7-18); BUN/CREATININE RATIO 10.9 (6.6-38.0); CHLORIDE 106 MMOL/L (99-107); CREATININE 0.64 MG/DL (0.40-0.90); GLUCOSE 98 MG/DL (70-104); POTASSIUM 3.7 MMOL/L (3.5-5.1); SODIUM 142 MMOL/L (135-145); TOTAL CARBON DIOXIDE 27.5 MMOL/L (24-32); eGFR > 90 ML/MIN
[2018-12-29] MEDS: dextrose 5%-1/2 normal saline 1,000 ML IV SCH ×2 (05:51→17:00)
--- NOTE | 2018-12-29 06:51 | NUR ---
Problems reprioritized. Patient report given, questions answered & plan of care reviewed with Sury ROCHA.
[2018-12-29] MEDS: levoTHYROXINE 100mcg tablet PO SCH (07:16)
[2018-12-29] MEDS: amLODIPine 5mg tablet PO SCH (07:16)
[2018-12-29] MEDS: celeCOXIB 100mg capsule PO SCH (07:16)
[2018-12-29] MEDS: pantoprazole 40mg Tablet.DR PO SCH (07:16)
[2018-12-29] MEDS: lactobacillus rhamnosus 10,000 MMU CELLS/CAPSULE PO SCH ×2 (07:16→21:26)
[2018-12-29] MEDS: ondansetron 4mg rapidly disintigrating tab PO SCH ×3 (07:16→21:26)
[2018-12-29] MEDS: CefTRIAXone/D5W-Rocephin 1gm 50 ML IV SCH (07:17)
[2018-12-29 07:22] VITALS: BP 129/75
[2018-12-29 10:00] VITALS: BP_SYST 118; BP_SYST 133; BP_SYST 98; BP_DIAS 63; BP_DIAS 70
[2018-12-29 11:00] VITALS: BP 115/69
[2018-12-29 18:30] VITALS: BP 122/70
--- NOTE | 2018-12-29 18:30 | NUR ---
Patient in room [facility]. I have received report from Sury ROCHA and had the opportunity to ask questions and assume patient care.
[2018-12-29 20:00] VITALS: BP_SYST 103; BP_SYST 104; BP_SYST 107; BP_DIAS 61; BP_DIAS 62
[2018-12-29] MEDS: magnesium hydroxide 30ml (MOM) UD suspension PO PRN (21:39)
[2018-12-30] VITALS: BP 101/58
[2018-12-30] MEDS: dextrose 5%-1/2 normal saline 1,000 ML IV SCH ×2 (02:15→05:18)
[2018-12-30 05:17] LABS: BASOPHILS # (AUTO) 0.1 X10'3 (0-0.2); BASOPHILS % (AUTO) 0.8 % (0-1); EOSINOPHILS # (AUTO) 1.1 X10'3 (0-0.9); EOSINOPHILS % (AUTO) 10.1 % (0-6); HEMATOCRIT 33.1 % (35.0-45.0); HEMOGLOBIN 10.7 g/dl (12.0-16.0); LYMPHOCYTES # (AUTO) 0.6 X10'3 (1.1-4.8); LYMPHOCYTES % (AUTO) 5.5 % (21-51); MEAN CORPUSCULAR HEMOGLOBIN 27.5 PG (27.0-31.0); MEAN CORPUSCULAR HGB CONC 32.3 g/dL (33.0-36.5); MEAN CORPUSCULAR VOLUME 84.9 FL (78-98); MONOCYTES # (AUTO) 0.9 X10'3 (0-0.9); MONOCYTES % (AUTO) 8.4 % (2-12); NEUTROPHILS # (AUTO) 7.8 X10'3 (1.8-7.7); NEUTROPHILS % (AUTO) 75.2 % (42-75); PLATELET COUNT 193 X10'3 (140-440); RED CELL DISTRIBUTION WIDTH 15.8 % (11.5-14.5); WHITE BLOOD COUNT 10.4 X10'3 (4.5-11.0)
[2018-12-30 05:41] LABS: ALBUMIN 2.2 G/DL (3.4-5.0); ANION GAP 7 (8-16); BLOOD UREA NITROGEN 6 MG/DL (7-18); BUN/CREATININE RATIO 9.2 (6.6-38.0); CHLORIDE 107 MMOL/L (99-107); CREATININE 0.65 MG/DL (0.40-0.90); GLUCOSE 90 MG/DL (70-104); POTASSIUM 3.8 MMOL/L (3.5-5.1); SODIUM 142 MMOL/L (135-145); eGFR 89 ML/MIN
--- NOTE | 2018-12-30 06:30 | NUR ---
Problems reprioritized. Patient report given, questions answered & plan of care reviewed with Binta ROCHA and assistant professor of nursing.
[2018-12-30 06:34] LABS: LARGE PLATELETS FEW; PLATELET ESTIMATE NORMAL
[2018-12-30] MEDS: CefTRIAXone/D5W-Rocephin 1gm 50 ML IV SCH (07:29)
[2018-12-30] MEDS: amLODIPine 5mg tablet PO SCH (07:29)
[2018-12-30] MEDS: ondansetron 4mg rapidly disintigrating tab PO SCH (07:29)
[2018-12-30] MEDS: lactobacillus rhamnosus 10,000 MMU CELLS/CAPSULE PO SCH (07:29)
[2018-12-30] MEDS: celeCOXIB 100mg capsule PO SCH (07:29)
[2018-12-30] MEDS: pantoprazole 40mg Tablet.DR PO SCH (07:29)
[2018-12-30] MEDS: levoTHYROXINE 100mcg tablet PO SCH (07:29)
[2018-12-30 08:00] VITALS: BP_SYST 115; BP_SYST 118; BP_SYST 126; BP_DIAS 58; BP_DIAS 61; BP_DIAS 68
[2018-12-30] MEDS: oxyCODONE/APAP 5-325mg tablet PO PRN (09:45)
[2018-12-30] MEDS ORDERED: METO-292 PO (09:57)
== END 2018-12-30 12:40 | disposition home health service (06) | DRG 690 ==
LOC: ER 11:29 → SUR 3N 17:43
PROVIDERS: ADMIT Internal Medicine; ATTEND Internal Medicine
DX: N39.0 Urinary tract infection, site not specified (principal); C78.7 Secondary malignant neoplasm of liver and intrahepatic bile duct; C79.51 Secondary malignant neoplasm of bone; D68.59 Other primary thrombophilia; E44.0 Moderate protein-calorie malnutrition; E86.0 Dehydration; E03.9 Hypothyroidism, unspecified; F17.210 Nicotine dependence, cigarettes, uncomplicated; I95.1 Orthostatic hypotension; K57.30 Diverticulosis of large intestine without perforation or abscess without bleeding; K59.00 Constipation, unspecified; G89.29 Other chronic pain; I10 Essential (primary) hypertension; J44.9 Chronic obstructive pulmonary disease, unspecified; Z88.0 Allergy status to penicillin; Z88.6 Allergy status to analgesic agent; Z88.8 Allergy status to other drugs, medicaments and biological substances; Z88.1 Allergy status to other antibiotic agents; Z79.899 Other long term (current) drug therapy; Z79.890 Hormone replacement therapy; Z79.01 Long term (current) use of anticoagulants; Z90.711 Acquired absence of uterus with remaining cervical stump; Z86.718 Personal history of other venous thrombosis and embolism; Z85.118 Personal history of other malignant neoplasm of bronchus and lung; Z90.2 Acquired absence of lung [part of]; Z68.30 Body mass index [BMI] 30.0-30.9, adult
CPT/HCPCS: 36415; 71045; 74176; 80048; 80053; 81001; 82948; 83605; 83880; 84145; 84443; 85025; 85610; 87040; 87081; 87088; 96361; 96365; 96375; 97110; 97116; 97162; 97530; 99285; G0378; J0696; J2270; J2405

== ENCOUNTER 2019-01-06 14:13 | Emergency (ER) | payer MEDICARE, OTHER ==
[~2019-01-06] VITALS: Ht 167.6 cm; Wt 84.1 kg
[~2019-01-06 14:13] MED LIST changes: -AMLO5TAB16 PO; +CELE-85 PO; -IBUP-1986 PO; +LIDO700A47 TOP; +METO-292 PO; +OMEP20TA23 PO; +ONDA8TAB12 PO; +PER5325T PO; +RIVA15TA PO
[2019-01-06] MEDS ORDERED: normal saline 1000ML IV soln IVB ONE (15:10)
[2019-01-06] MEDS ORDERED: ondansetron/PF 4mg/2ml inj IV ONE (15:10)
[2019-01-06 15:34] LABS: BASOPHILS # (AUTO) 0.1 X10'3 (0-0.2); BASOPHILS % (AUTO) 0.3 % (0-1); HEMATOCRIT 36.7 % (35.0-45.0); HEMOGLOBIN 11.6 g/dl (12.0-16.0); LYMPHOCYTES # (AUTO) 0.5 X10'3 (1.1-4.8); LYMPHOCYTES % (AUTO) 2.7 % (21-51); MEAN CORPUSCULAR HEMOGLOBIN 26.5 PG (27.0-31.0); MEAN CORPUSCULAR HGB CONC 31.7 g/dL (33.0-36.5); MEAN CORPUSCULAR VOLUME 83.6 FL (78-98); MEAN PLATELET VOLUME 9.4 FL (7.4-10.4); MONOCYTES # (AUTO) 1.4 X10'3 (0-0.9); MONOCYTES % (AUTO) 8.2 % (2-12); NEUTROPHILS # (AUTO) 13.8 X10'3 (1.8-7.7); NEUTROPHILS % (AUTO) 82.8 % (42-75); PLATELET COUNT 274 X10'3 (140-440); RED BLOOD COUNT 4.39 X10'6 (4.20-5.60); RED CELL DISTRIBUTION WIDTH 15.9 % (11.5-14.5); WHITE BLOOD COUNT 16.7 X10'3 (4.5-11.0)
[2019-01-06 15:48] LABS: ALANINE AMINOTRANSFERASE 75 U/L (12-78); ALBUMIN 2.5 G/DL (3.4-5.0); ALBUMIN/GLOBULIN RATIO 0.6 (1.1-1.5); ALKALINE PHOSPHATASE 697 IU/L (46-116); ANION GAP 10 (8-16); ASPARTATE AMINO TRANSFERASE 73 U/L (10-37); BILIRUBIN,TOTAL 0.6 MG/DL (0.1-1.0); BLOOD UREA NITROGEN 14 MG/DL (7-18); BUN/CREATININE RATIO 18.4 (6.6-38.0); CALCIUM 11.9 MG/DL (8.5-10.1); CHLORIDE 103 MMOL/L (99-107); CREATININE 0.76 MG/DL (0.40-0.90); GLUCOSE 89 MG/DL (70-104); LIPASE < 50 U/L (73-393); POTASSIUM 4.7 MMOL/L (3.5-5.1); SODIUM 138 MMOL/L (135-145); TOTAL CARBON DIOXIDE 25.2 MMOL/L (24-32); TOTAL PROTEIN 6.7 G/DL (6.4-8.2); eGFR 75 ML/MIN
--- NOTE | 2019-01-06 15:50 | NUR ---
relieving RN for lunch, hemocult done without complications, negative for blood
--- NOTE | 2019-01-06 16:13 | NUR ---
in and out cath done with sterile technique, no complications, pt geovanna well
[2019-01-06 16:38] LABS: GLUCOSE, URINE NEGATIVE (Neg); KETONES,URINE 15 mg/dl (Neg); LEUKOCYTE ESTERASE ,URINE NEGATIVE (Neg); NITRITES, URINE NEGATIVE (Neg); OCCULT BLOOD,URINE NEGATIVE (Neg); PH,URINE 5.5 (4.8-8.0); PROTEIN,URINE NEGATIVE (Neg)
[2019-01-06 16:45] LABS: CLARITY,URINE SLIGHTLY CLOUDY (Clear); COLOR,URINE DARK YELLOW (Yellow); UA COLLECTION TYPE FOLEY CATH
[2019-01-06 16:47] LABS: BACTERIA,URINE FEW /HPF (Neg); MUCUS STRANDS MODERATE /LPF (Neg); RBC,URINE NONE SEEN /HPF (0-2); SQUAMOUS EPITHELIAL CELL,UR MANY /LPF (FEW); TRANSITIONAL EPI CELLS,URINE FEW /HPF; WBC,URINE 0-4 /HPF (0-4)
[2019-01-06 16:48] LABS: AMORPHOUS URATES 1+
--- NOTE | 2019-01-06 17:18 | NUR ---
to ct scan
--- NOTE | 2019-01-06 17:49 | NUR ---
RELIEVING RN FOR BREAK, PT IS SLEEPING QUIETLY, RESP EVEN AND UNLABORED
--- NOTE | 2019-01-06 19:45 | NUR ---
YVONNE [phone] CALLED FOR UPDATE
--- NOTE | 2019-01-06 20:46 | NUR ---
DONAVON [phone] DAUGHTER IN LAW CALLED AND OK BY PATIENT TO TALK TO HER SON RENETTA'S
--- NOTE | 2019-01-06 20:47 | NUR ---
PATIENT UP WITH FFW AND WALKED TO ROOM DOORWAY. PER PATIENT: AT HOME SHE CAN USUALLY ONLY WALK ABOUT 10 STEPS WITH WALKER.
[2019-01-06 20:51] VITALS: BP 122/77
--- NOTE | 2019-01-06 21:41 | NUR ---
PATIENT IN WC WAITING FOR TO ARRIVE
[2019-01-07 07:26] LABS: OCCULT BLOOD STOOL NEGATIVE (Neg)
== END 2019-01-06 21:53 | disposition home or self-care (01) ==
LOC: ER 14:14
DX: R11.2 Nausea with vomiting, unspecified (principal); G89.29 Other chronic pain; R10.11 Right upper quadrant pain; R10.12 Left upper quadrant pain; I10 Essential (primary) hypertension; J44.9 Chronic obstructive pulmonary disease, unspecified; F17.200 Nicotine dependence, unspecified, uncomplicated; Z90.89 Acquired absence of other organs; Z79.899 Other long term (current) drug therapy; Z88.1 Allergy status to other antibiotic agents; Z88.0 Allergy status to penicillin; Z88.8 Allergy status to other drugs, medicaments and biological substances
CPT/HCPCS: 36415; 74176; 80053; 81001; 82272; 83690; 85025; 96361; 96374; 99284; J2405; J7030; 90471

== ENCOUNTER 2019-01-10 15:44 | Inpatient (IN) | payer MEDICARE, OTHER ==
[~2019-01-10] VITALS: Ht 167.6 cm; Wt 84.1 kg
[2019-01-10] MEDS ORDERED: ondansetron/PF 4mg/2ml inj IV ONE (16:20)
[2019-01-10 16:45] LABS: BASOPHILS % (AUTO) 0.3 % (0-1); EOSINOPHILS # (AUTO) 0.9 X10'3 (0-0.9); EOSINOPHILS % (AUTO) 5.1 % (0-6); HEMATOCRIT 37.1 % (35.0-45.0); HEMOGLOBIN 11.9 g/dl (12.0-16.0); LYMPHOCYTES # (AUTO) 0.4 X10'3 (1.1-4.8); LYMPHOCYTES % (AUTO) 2.6 % (21-51); MEAN CORPUSCULAR HEMOGLOBIN 26.3 PG (27.0-31.0); MEAN CORPUSCULAR HGB CONC 32.1 g/dL (33.0-36.5); MEAN CORPUSCULAR VOLUME 82.1 FL (78-98); MEAN PLATELET VOLUME 9.8 FL (7.4-10.4); MONOCYTES # (AUTO) 1.4 X10'3 (0-0.9); MONOCYTES % (AUTO) 8.1 % (2-12); NEUTROPHILS # (AUTO) 14.5 X10'3 (1.8-7.7); NEUTROPHILS % (AUTO) 83.9 % (42-75); PLATELET COUNT 266 X10'3 (140-440); RED BLOOD COUNT 4.52 X10'6 (4.20-5.60); RED CELL DISTRIBUTION WIDTH 16.3 % (11.5-14.5); WHITE BLOOD COUNT 17.2 X10'3 (4.5-11.0)
[2019-01-10 17:02] LABS: ALANINE AMINOTRANSFERASE 82 U/L (12-78); ALBUMIN 2.3 G/DL (3.4-5.0); ALBUMIN/GLOBULIN RATIO 0.5 (1.1-1.5); ALKALINE PHOSPHATASE 781 IU/L (46-116); ANION GAP 11 (8-16); ASPARTATE AMINO TRANSFERASE 83 U/L (10-37); BILIRUBIN,TOTAL 0.9 MG/DL (0.1-1.0); BLOOD UREA NITROGEN 24 MG/DL (7-18); BUN/CREATININE RATIO 33.3 (6.6-38.0); CALCIUM 11.7 MG/DL (8.5-10.1); CHLORIDE 104 MMOL/L (99-107); CREATININE 0.72 MG/DL (0.40-0.90); GLUCOSE 84 MG/DL (70-104); POTASSIUM 4.3 MMOL/L (3.5-5.1); SODIUM 141 MMOL/L (135-145); TOTAL CARBON DIOXIDE 25.9 MMOL/L (24-32); TOTAL PROTEIN 6.6 G/DL (6.4-8.2); eGFR 79 ML/MIN
[2019-01-10] MEDS ORDERED: normal saline 1000ml 1,000 ML IVB ONE (18:11)
[2019-01-10 19:02] LABS: CLARITY,URINE SLIGHTLY CLOUDY (Clear); COLOR,URINE YELLOW (Yellow); GLUCOSE, URINE NEGATIVE (Neg); KETONES,URINE 40 mg/dl (Neg); LEUKOCYTE ESTERASE ,URINE NEGATIVE (Neg); NITRITES, URINE NEGATIVE (Neg); OCCULT BLOOD,URINE NEGATIVE (Neg); PH,URINE 5.5 (4.8-8.0); PROTEIN,URINE NEGATIVE (Neg)
[2019-01-10 19:04] LABS: UA COLLECTION TYPE STRAIGHT CATH
[2019-01-10 19:11] LABS: BACTERIA,URINE 4+ /HPF (Neg); MUCUS STRANDS MANY /LPF (Neg); RBC,URINE NONE SEEN /HPF (0-2); SQUAMOUS EPITHELIAL CELL,UR FEW /LPF (FEW)
--- NOTE | 2019-01-10 19:48 | NUR ---
PT GIVEN 1/2 CUP OF WATER. PT TOLERATED WELL.
[2019-01-10] MEDS ORDERED: magnesium hydroxide 30ml (MOM) UD suspension PO PRN (20:00)
[2019-01-10] MEDS ORDERED: ondansetron/PF 4mg/2ml inj IV PRN (20:00)
[2019-01-10] MEDS ORDERED: potassium CL 10mEq/100ml bag 100 ML IV PRN ×2 (20:00)
[2019-01-10] MEDS ORDERED: mag hydrox/Alum hydrox/simeth 30ml oral suspension PO PRN (20:00)
[2019-01-10] MEDS ORDERED: magnesium 4gm in 100ml NS 100 ML IV PRN (20:00)
[2019-01-10] MEDS ORDERED: magnesium Cl slow-release 64mg tablet PO PRN (20:00)
[2019-01-10] MEDS ORDERED: morphine 2 MG/ML inj. syringe IV PRN ×2 (20:00)
[2019-01-10] MEDS ORDERED: magnesium 2GM in 50ml NS 50 ML IV PRN (20:00)
[2019-01-10] MEDS ORDERED: potassium Cl 20 mEq SR tablet PO PRN (20:00)
[2019-01-10] MEDS ORDERED: HYDROcodone/acetaminophen 10/325mg tab PO PRN (20:00)
[2019-01-10] MEDS ORDERED: acetaminophen 325mg tablet PO PRN ×2 (20:00)
[2019-01-10] MEDS ORDERED: metoclopramide 10mg tablet PO PRN (23:15)
--- NOTE | 2019-01-10 23:18 | NUR ---
Patient in room [facility]. I have received report from AJ Gonzalez and had the opportunity to ask questions and assume patient care.
[2019-01-10 23:30] VITALS: BP 123/69
[2019-01-10] MEDS: normal saline 1000ml 1,000 ML IV SCH (23:38)
[2019-01-11 04:56] LABS: BASOPHILS % (AUTO) 0.3 % (0-1); EOSINOPHILS # (AUTO) 1.3 X10'3 (0-0.9); HEMATOCRIT 34.3 % (35.0-45.0); LYMPHOCYTES # (AUTO) 0.5 X10'3 (1.1-4.8); LYMPHOCYTES % (AUTO) 3.3 % (21-51); MEAN CORPUSCULAR HEMOGLOBIN 26.5 PG (27.0-31.0); MEAN CORPUSCULAR HGB CONC 32.2 g/dL (33.0-36.5); MEAN CORPUSCULAR VOLUME 82.4 FL (78-98); MEAN PLATELET VOLUME 9.6 FL (7.4-10.4); MONOCYTES # (AUTO) 1.3 X10'3 (0-0.9); MONOCYTES % (AUTO) 8.6 % (2-12); NEUTROPHILS # (AUTO) 11.7 X10'3 (1.8-7.7); NEUTROPHILS % (AUTO) 78.8 % (42-75); PLATELET COUNT 227 X10'3 (140-440); RED BLOOD COUNT 4.17 X10'6 (4.20-5.60); WHITE BLOOD COUNT 14.8 X10'3 (4.5-11.0)
[2019-01-11 05:21] LABS: ALBUMIN 2.1 G/DL (3.4-5.0); ANION GAP 11 (8-16); BLOOD UREA NITROGEN 20 MG/DL (7-18); BUN/CREATININE RATIO 34.5 (6.6-38.0); CALCIUM 10.7 MG/DL (8.5-10.1); CHLORIDE 105 MMOL/L (99-107); CREATININE 0.58 MG/DL (0.40-0.90); GLUCOSE 66 MG/DL (70-104); SODIUM 141 MMOL/L (135-145); TOTAL CARBON DIOXIDE 25.5 MMOL/L (24-32); eGFR > 90 ML/MIN
--- NOTE | 2019-01-11 06:25 | NUR ---
Problems reprioritized. Patient report given, questions answered & plan of care reviewed with Remberto Ricardo and REMBERTO Manning.
[2019-01-11 07:12] VITALS: BP 123/70
[2019-01-11] MEDS: celeCOXIB 100mg capsule PO SCH (07:48)
[2019-01-11] MEDS: pantoprazole 40mg Tablet.DR PO SCH (07:48)
[2019-01-11] MEDS: levoTHYROXINE 100mcg tablet PO SCH (07:48)
[2019-01-11] MEDS: LIDOcaine 5% patch TP SCH (07:55)
[2019-01-11] MEDS ORDERED: rivaroxaban 15mg tablet PO SCH (08:00)
[2019-01-11] MEDS: K and/or MAG REPLACEMENT MC SCH (08:00)
[2019-01-11] MEDS ORDERED: FLU VACC QS2019-20 36MOS UP/PF 60 MCG/0.5 ML SYRINGE IMVAC ONE (10:00)
[2019-01-11] MEDS: normal saline 1000ml 1,000 ML IV SCH ×2 (10:45→15:57)
[2019-01-11 11:00] VITALS: BP 127/64
--- NOTE | 2019-01-11 11:45 | NUR ---
INFORMED DR. HENNING OF RESULTS DR HENNING STATED NO ABX NEEDED
[2019-01-11] MEDS: dronabinol 2.5mg capsule PO SCH ×2 (13:32→20:15)
[2019-01-11] MEDS ORDERED: furosemide 40mg/4ml inj IV ONE (13:45)
--- NOTE | 2019-01-11 14:50 | NUR ---
Malnutrition consult: Pt seen at bedside reports UBW 226 lbs and states she is unsure if she has had any wt loss or what her current wt is. Current documented wt is 186 lbs which is pt stated. Noted that pt confused and poor historian per H&P however documented as A/O x 4 in physical assessment. Only documented wt hx is 227 lbs 03/2018. Unsure if patient's current documented wt is accurate. Pt currently on regular diet documented to have refused breakfast this morning. Lunch tray visible during RD visit of which pt started eating at the end of visit. Pt provided with alternative write in menu to provide additional food options however pt with no food preferences at this time. Pt receiving appetite stimulant for c/o decreased appetite. Pt with no decrease in muscle strength, significant edema, or visible fat/muscle wasting. Pt currently does not meet criteria for malnutrition at this time. RD contact information provided. Will continue to follow. Addendum: 01/11/19 at [address] Amended: Links added.
[2019-01-11] MEDS ORDERED: WARF1TAB83 PO (15:17)
--- NOTE | 2019-01-11 18:15 | NUR ---
Patient in room [facility]. I have received report from AJ Ricardo and had the opportunity to ask questions and assume patient care.
--- NOTE | 2019-01-11 18:28 | NUR ---
Problems reprioritized. Patient report given, questions answered & plan of care reviewed with AJ GAVIN.
[2019-01-11 20:00] VITALS: BP 106/71
[2019-01-11] MEDS ORDERED: warfarin 1mg tablet PO SCH (21:00)
[2019-01-12] VITALS: BP 123/56
[2019-01-12 04:58] LABS: BASOPHILS # (AUTO) 0.1 X10'3 (0-0.2); PLATELET COUNT 218 X10'3 (140-440)
[2019-01-12 05:01] LABS: BASOPHILS % (AUTO) 0.4 % (0-1); EOSINOPHILS # (AUTO) 1.8 X10'3 (0-0.9); EOSINOPHILS % (AUTO) 11.4 % (0-6); HEMATOCRIT 34.7 % (35.0-45.0); HEMOGLOBIN 11.3 g/dl (12.0-16.0); LYMPHOCYTES # (AUTO) 0.6 X10'3 (1.1-4.8); LYMPHOCYTES % (AUTO) 3.6 % (21-51); MEAN CORPUSCULAR HEMOGLOBIN 26.5 PG (27.0-31.0); MEAN CORPUSCULAR HGB CONC 32.5 g/dL (33.0-36.5); MEAN CORPUSCULAR VOLUME 81.7 FL (78-98); MEAN PLATELET VOLUME 10.3 FL (7.4-10.4); MONOCYTES # (AUTO) 1.2 X10'3 (0-0.9); MONOCYTES % (AUTO) 7.8 % (2-12); NEUTROPHILS # (AUTO) 12.1 X10'3 (1.8-7.7); NEUTROPHILS % (AUTO) 76.8 % (42-75); RED BLOOD COUNT 4.24 X10'6 (4.20-5.60); WHITE BLOOD COUNT 15.8 X10'3 (4.5-11.0)
[2019-01-12 05:29] LABS: ALBUMIN 2.1 G/DL (3.4-5.0); ANION GAP 9 (8-16); BLOOD UREA NITROGEN 15 MG/DL (7-18); BUN/CREATININE RATIO 24.2 (6.6-38.0); CALCIUM 11.2 MG/DL (8.5-10.1); CHLORIDE 101 MMOL/L (99-107); CREATININE 0.62 MG/DL (0.40-0.90); GLUCOSE 74 MG/DL (70-104); MAGNESIUM 1.8 MG/DL (1.5-2.4); POTASSIUM 3.4 MMOL/L (3.5-5.1); SODIUM 137 MMOL/L (135-145); TOTAL CARBON DIOXIDE 27.5 MMOL/L (24-32); eGFR > 90 ML/MIN
[2019-01-12] MEDS: normal saline 1000ml 1,000 ML IV SCH ×3 (05:37→21:57)
[2019-01-12 06:30] VITALS: BP 116/68
--- NOTE | 2019-01-12 06:31 | NUR ---
Problems reprioritized. Patient report given, questions answered & plan of care reviewed with AJ Garcia.
--- NOTE | 2019-01-12 06:31 | NUR ---
Patient in room [facility]. I have received report from AJ GAVIN and had the opportunity to ask questions and assume patient care.
[2019-01-12 07:22] VITALS: BP 118/64
[2019-01-12] MEDS: K and/or MAG REPLACEMENT MC SCH (08:00)
[2019-01-12] MEDS: potassium Cl 20 mEq SR tablet PO PRN ×3 (08:48→21:54)
[2019-01-12] MEDS: pantoprazole 40mg Tablet.DR PO SCH (08:49)
[2019-01-12] MEDS: levoTHYROXINE 100mcg tablet PO SCH (08:49)
[2019-01-12] MEDS: celeCOXIB 100mg capsule PO SCH (08:50)
[2019-01-12] MEDS: LIDOcaine 5% patch TP SCH (08:50)
--- NOTE | 2019-01-12 09:00 | NUR ---
No flu vaccines available throughout whole hospital per pharmacy. patient notified.
[2019-01-12] MEDS: dronabinol 2.5mg capsule PO SCH ×2 (09:02→21:52)
[2019-01-12] MEDS ORDERED: FLU VACC QS2019-20 36MOS UP/PF 60 MCG/0.5 ML SYRINGE IMVAC ONE (09:55)
[2019-01-12 11:30] VITALS: BP 99/52
[2019-01-12 12:44] VITALS: BP 112/55
--- NOTE | 2019-01-12 18:40 | NUR ---
Problems reprioritized. Patient report given, questions answered & plan of care reviewed with YVETTE RN.
[2019-01-12 19:30] VITALS: BP 113/59
--- NOTE | 2019-01-12 19:30 | NUR ---
MOM offered; pt refuses stating she'll take it in the morning Addendum: 01/13/19 at 0354 by Calista Mattson RN Amended: Links added.
[2019-01-12] MEDS ORDERED: warfarin 1mg tablet PO ONE (21:00)
[2019-01-13] VITALS: BP 117/48
[2019-01-13 05:14] LABS: BASOPHILS # (AUTO) 0.1 X10'3 (0-0.2); EOSINOPHILS # (AUTO) 1.6 X10'3 (0-0.9); HEMOGLOBIN 10.7 g/dl (12.0-16.0); LYMPHOCYTES # (AUTO) 0.5 X10'3 (1.1-4.8); MONOCYTES # (AUTO) 0.9 X10'3 (0-0.9)
[2019-01-13 05:17] LABS: BASOPHILS % (AUTO) 0.6 % (0-1); EOSINOPHILS % (AUTO) 11.7 % (0-6); HEMATOCRIT 32.8 % (35.0-45.0); LYMPHOCYTES % (AUTO) 3.6 % (21-51); MEAN CORPUSCULAR HGB CONC 32.6 g/dL (33.0-36.5); MEAN CORPUSCULAR VOLUME 82.8 FL (78-98); MEAN PLATELET VOLUME 10.1 FL (7.4-10.4); MONOCYTES % (AUTO) 6.7 % (2-12); NEUTROPHILS # (AUTO) 10.6 X10'3 (1.8-7.7); NEUTROPHILS % (AUTO) 77.4 % (42-75); PLATELET COUNT 190 X10'3 (140-440); RED BLOOD COUNT 3.97 X10'6 (4.20-5.60); RED CELL DISTRIBUTION WIDTH 16.2 % (11.5-14.5); WHITE BLOOD COUNT 13.7 X10'3 (4.5-11.0)
[2019-01-13 05:31] LABS: ALBUMIN 1.9 G/DL (3.4-5.0); ANION GAP 8 (8-16); BLOOD UREA NITROGEN 11 MG/DL (7-18); BUN/CREATININE RATIO 16.7 (6.6-38.0); CALCIUM 10.8 MG/DL (8.5-10.1); CHLORIDE 107 MMOL/L (99-107); CREATININE 0.66 MG/DL (0.40-0.90); GLUCOSE 78 MG/DL (70-104); MAGNESIUM 1.7 MG/DL (1.5-2.4); POTASSIUM 4.3 MMOL/L (3.5-5.1); SODIUM 140 MMOL/L (135-145); TOTAL CARBON DIOXIDE 25.3 MMOL/L (24-32); eGFR 88 ML/MIN
[2019-01-13 06:30] VITALS: BP 116/70
[2019-01-13 06:39] LABS: ANISOCYTOSIS 1+; PLATELET ESTIMATE NORMAL; TOTAL CELLS COUNTED 100
--- NOTE | 2019-01-13 06:55 | NUR ---
Patient in room [facility]. I have received report from AJ Rhodes and had the opportunity to ask questions and assume patient care.
[2019-01-13] MEDS: K and/or MAG REPLACEMENT MC SCH (07:57)
[2019-01-13] MEDS: celeCOXIB 100mg capsule PO SCH (08:05)
[2019-01-13] MEDS: pantoprazole 40mg Tablet.DR PO SCH (08:06)
[2019-01-13] MEDS: levoTHYROXINE 100mcg tablet PO SCH (08:06)
[2019-01-13] MEDS: LIDOcaine 5% patch TP SCH (08:07)
[2019-01-13] MEDS: normal saline 1000ml 1,000 ML IV SCH ×3 (08:15→20:50)
[2019-01-13] MEDS: dronabinol 2.5mg capsule PO SCH ×2 (08:18→20:51)
[2019-01-13 11:00] VITALS: BP 119/72
[2019-01-13] MEDS ORDERED: oxyCODONE/APAP 5-325mg tablet PO PRN (12:05)
--- NOTE | 2019-01-13 12:10 | NUR ---
Patient in room [facility] 349A. I have received report from student nurse and primary nurse Elsa RN. I had the opportunity to ask questions and assume patient care.
[2019-01-13] MEDS ORDERED: pamidronate disodium inj 60 MG in normal saline 500ml IV soln 500 ML IV ONE (13:55)
--- NOTE | 2019-01-13 15:35 | NUR ---
Initial: Pt admit with generalized weakness with c/o decreased appetite and with hx metastatic non-small cell lung cancer. Pt receiving routine Marinol and reports improving appetite and denies N/V per MD notes. Pt on regular diet documented with average 0-25% PO intake up to 50% at lunch today. Pt has already been seen by RD and was provided with alternative write in menu and RD contact information. LBM 01/07. Pt with MoM PRN just given first dose today. Will continue to follow and make recommendations as appropriate. Recommendations: 1) Continue with regular diet 2) Monitor need for ONS 3) Bowel care; monitor need for additional 4) Wt per rx Addendum: 01/13/19 at [address] Amended: Links added.
--- NOTE | 2019-01-13 17:47 | NUR ---
Student documentation: I have reviewed all interventions, assessments performed and documented by Kerri GRECO
--- NOTE | 2019-01-13 18:05 | NUR ---
report given to primary RN Elsa .
--- NOTE | 2019-01-13 18:50 | NUR ---
Problems reprioritized. Patient report given, questions answered & plan of care reviewed with AJ Zuleta.
[2019-01-13 19:00] VITALS: BP 117/73
[2019-01-13] MEDS ORDERED: warfarin 2.5mg tablet PO ONE (21:00)
[2019-01-14] VITALS: BP 123/76
[2019-01-14 05:02] LABS: BASOPHILS # (AUTO) 0.1 X10'3 (0-0.2); BASOPHILS % (AUTO) 0.5 % (0-1); EOSINOPHILS # (AUTO) 1.7 X10'3 (0-0.9); HEMATOCRIT 33.3 % (35.0-45.0); HEMOGLOBIN 10.7 g/dl (12.0-16.0); LYMPHOCYTES # (AUTO) 0.4 X10'3 (1.1-4.8); LYMPHOCYTES % (AUTO) 2.6 % (21-51); MEAN CORPUSCULAR HEMOGLOBIN 26.3 PG (27.0-31.0); MEAN CORPUSCULAR HGB CONC 32.1 g/dL (33.0-36.5); MEAN CORPUSCULAR VOLUME 81.9 FL (78-98); MONOCYTES # (AUTO) 0.9 X10'3 (0-0.9); MONOCYTES % (AUTO) 6.6 % (2-12); NEUTROPHILS # (AUTO) 10.9 X10'3 (1.8-7.7); NEUTROPHILS % (AUTO) 78.3 % (42-75); PLATELET COUNT 189 X10'3 (140-440); RED BLOOD COUNT 4.07 X10'6 (4.20-5.60); RED CELL DISTRIBUTION WIDTH 16.4 % (11.5-14.5); WHITE BLOOD COUNT 13.9 X10'3 (4.5-11.0)
[2019-01-14 05:20] LABS: ALBUMIN 1.8 G/DL (3.4-5.0); ANION GAP 9 (8-16); BLOOD UREA NITROGEN 8 MG/DL (7-18); BUN/CREATININE RATIO 13.1 (6.6-38.0); CALCIUM 10.9 MG/DL (8.5-10.1); CHLORIDE 105 MMOL/L (99-107); CREATININE 0.61 MG/DL (0.40-0.90); GLUCOSE 70 MG/DL (70-104); MAGNESIUM 1.8 MG/DL (1.5-2.4); POTASSIUM 4.1 MMOL/L (3.5-5.1); SODIUM 138 MMOL/L (135-145); TOTAL CARBON DIOXIDE 24.2 MMOL/L (24-32); eGFR > 90 ML/MIN
--- NOTE | 2019-01-14 06:25 | NUR ---
Patient in room [facility]. I have received report from AJ Summers and had the opportunity to ask questions and assume patient care.
[2019-01-14 07:00] VITALS: BP 127/81
[2019-01-14] MEDS: K and/or MAG REPLACEMENT MC SCH (08:00)
[2019-01-14] MEDS: celeCOXIB 100mg capsule PO SCH (08:40)
[2019-01-14] MEDS: pantoprazole 40mg Tablet.DR PO SCH (08:40)
[2019-01-14] MEDS: levoTHYROXINE 100mcg tablet PO SCH (08:40)
[2019-01-14] MEDS: normal saline 1000ml 1,000 ML IV SCH (08:41)
[2019-01-14] MEDS: dronabinol 2.5mg capsule PO SCH (08:43)
[2019-01-14] MEDS: LIDOcaine 5% patch TP SCH (08:43)
[2019-01-14 11:00] VITALS: BP 101/83
--- NOTE | 2019-01-14 13:00 | NUR ---
Report given to Marii at [facility]
--- NOTE | 2019-01-14 13:30 | NUR ---
Patient discharged to [facility], all belongings sent with patient, IV taken out, patient taken by Bruno-A-Earl
[2019-01-14] MEDS ORDERED: bisacodyl 10mg suppository rectal RC ONE (13:40)
[2019-01-14] MEDS ORDERED: warfarin 1mg tablet PO ONE (21:00)
== END 2019-01-14 15:27 | DRG 180 ==
LOC: ER 15:45 → ED HOLD 20:08 → CMPBEDREQ 22:25 → SUR 3N 23:10
PROVIDERS: ADMIT Hospitalist; ATTEND Family Medicine
DX: C34.90 Malignant neoplasm of unspecified part of unspecified bronchus or lung (principal); G93.41 Metabolic encephalopathy; C79.9 Secondary malignant neoplasm of unspecified site; E83.52 Hypercalcemia; Z66 Do not resuscitate; Z51.5 Encounter for palliative care; K59.00 Constipation, unspecified; J44.9 Chronic obstructive pulmonary disease, unspecified; I10 Essential (primary) hypertension; E86.0 Dehydration; E03.9 Hypothyroidism, unspecified; M54.9 Dorsalgia, unspecified; Z90.2 Acquired absence of lung [part of]; Z88.0 Allergy status to penicillin; Z88.1 Allergy status to other antibiotic agents; Z88.8 Allergy status to other drugs, medicaments and biological substances; Z79.899 Other long term (current) drug therapy; Z79.890 Hormone replacement therapy; Z86.711 Personal history of pulmonary embolism; Z79.01 Long term (current) use of anticoagulants
CPT/HCPCS: 36415; 71045; 80048; 80053; 81001; 82330; 82948; 83735; 85025; 85610; 87081; 87088; 93005; 96374; 97110; 97116; 97161; 97530; 99285; G0378; J1940; J2405; J2430; J7030; J7040; Q0167; Q2037